=== PATIENT | male | born 1980 | race Caucasian/White ===

== ENCOUNTER 2022-02-18 11:26 | Emergency (ER) | payer OTHER, SELFPAY ==
[2022-02-18 11:32] VITALS: BP 144/97; PULSE 110; RESP 16; TEMP 36.6; O2SAT 100
[2022-02-18 11:45] VITALS: BP 144/97; PULSE 110; RESP 16; TEMP 36.6; O2SAT 100
--- NOTE | 2022-02-18 12:01 | ED.URI ---
HPI - URI/Sore Throat General Chief Complaint: Upper Respiratory Infection Stated Complaint: common cold Time Seen by Provider: 02/18/22 12:01 Source: patient and RN notes reviewed Mode of arrival: ambulatory Limitations: no limitations History of Present Illness HPI Narrative: 42-year-old male presents to the [facility] with complaints of sinus congestion, her runny nose, postnasal drip and sore throat. Symptoms x1 week. States that he has a skilled nursing sick. Has not slept a couple of days. Denies fevers, chest pain, abdominal pain. MD elicited complaint: cough, sore throat, rhinorrhea and nasal congestion Related Data Home Medications Medication Instructions Recorded Confirmed fluoxetine 20 mg tablet 20 mg PO DAILY 02/18/22 02/18/22 Allergies Allergy/AdvReac Type Severity Reaction Status Date / Time No Known Allergies Allergy Verified 02/18/22 11:45 Review of Systems Review of Systems: All systems reviewed & are unremarkable except as noted in HPI and below Constitutional: Constitutional: Reports no additional constitutional complaints, Denies chills and Denies fever(s) Eyes: Eyes: Reports no additional eye complaints ENT: Reports as per HPI and Reports nasal congestion Cardiovascular: Cardiovascular: Reports no additional cardiovascular complaints Respiratory: Respiratory: Reports no additional respiratory complaints Gastrointestinal: Gastrointestinal: Reports no additional gastrointestinal complaints Musculoskeletal: Musculoskeletal: Reports no additional musculoskeletal complaints Integumentary/Breasts: Skin/Breast: Reports system reviewed and no additional complaints, except as docu Neurologic: Reports system reviewed and no additional complaints, except as documented Psychiatric: Psychiatric: Reports no additional psychiatric complaints Allergic/Immunologic: Allergic/Immunologic: Reports no additional allergic/immunologic complaints PMFSH Family History Family History Mother Patient's mother is in good health Father Hypertension Social History Social History (Updated 02/18/22 @ 12:02 by Iris Lopes APRN) Smoking status: Current every day smoker Tobacco type: e-cigarettes/vaping Smoking end date: 04/17/11 Alcohol intake: current Gender identity (if verbalized by the patient): Male Comments At the time of my signature, I reviewed and agree with the nursing past medical, surgical, social, and family history. There is no relevant family history pertinent to the patient complaint. Exam Const: General: healthy appearing, no acute distress, alert and well nourished Nutritional Appearance: well nourished Orientation/consciousness: patient oriented x3 Limitations: no limitations HENMT: Head: normal to inspection Ears: external ears normal, TM's normal bilaterally and EAC's normal Face/Nose/Sinus: Normal external nose present and Normal nares present Face and sinus: normal facial exam Mouth: Yes Normal oral and palatal mucosa present, Yes lip normal and Yes moist mucous membranes Throat: posterior oropharynx normal, uvula midline and postnasal drainage Eyes: General: appearance normal, both eyes and all related structures Conjunctivae: conjunctivae normal Pupils: Equal, round and reactive pupils present Neck: Neck: normal visual inspection, no lymphadenopathy and no meningeal signs Chest: Chest palpation & inspection: normal inspection of the chest Resp: Effort & Inspection: normal respiratory effort and no use of accessory muscles Auscultation: clear to auscultation bilaterally, no crackles, no rales, no rhonchi and no wheezes Cardio: Rate: regular rate Rhythm: regular rhythm Skin: General skin exam: normal color Rashes: no rashes Wounds: no wounds Neuro: General: patient oriented x3, moves all extremities, no meningeal signs and no focal motor deficits Cranial nerves: Yes Equal, round and reactive pupils pr
== END 2022-02-18 12:11 | disposition home or self-care (01) ==
PROVIDERS: Emergency Provider Nurse Practitioner; PCP Internal Medicine
DX: J06.9 Acute upper respiratory infection, unspecified (principal); F17.290 Nicotine dependence, other tobacco product, uncomplicated
CPT/HCPCS: 99202; G0463

== ENCOUNTER 2023-11-16 15:25 | Emergency (ER) | payer OTHER, SELFPAY ==
[2023-11-16 15:36] VITALS: BP 168/137; PULSE 128; RESP 20; TEMP 36.5; O2SAT 100
--- NOTE | 2023-11-16 15:41 | ED.SKABFB ---
HPI - Skin/Abscess/Foreign Bdy General Chief complaint: Skin/Abscess/Foreign Body Stated complaint: poison césar Time Seen by Provider: 11/16/23 15:42 Source: patient Mode of arrival: ambulatory Limitations: no limitations History of Present Illness HPI narrative: 43 y/o male presents requesting a 'steroid shot,' with complaints of a poison césar rash x4 days after clearing brush. He has been using calamine lotion, hydrocortisone cream, and Benadryl as needed for the itching. He denies any fevers/chills, headache, body aches, or joint pain. Denies lip, tongue, or throat swelling, shortness of breath or wheezing. Denies changes to soap, detergent, lotion, or any other exposures. No one else in the house or any contacts with similar symptoms. BP elevated on arrival, he says PCP told him in September the bp was elevated but did not require medication, though he had previously been taking lisinopril.Denies chest pain, palpitations, Swelling, nausea, vomiting or dizziness. Related Data Home Medications Medication Instructions Recorded Confirmed bupropion HCl 150 mg 24 hr tablet, 150 mg PO DAILY 11/16/23 11/16/23 extended release hydroxyzine HCl 25 mg tablet 25 mg PO TID PRN Anxiety 11/16/23 11/16/23 Allergies Allergy/AdvReac Type Severity Reaction Status Date / Time No Known Allergies Allergy Verified 11/16/23 15:41 Review of Systems Review of Systems: CONSTITUTIONAL: Denies body aches, fever, chills, or sweats. EYES: Denies visual changes, redness, or discharge. ENT: Denies rhinorrhea, congestion CARDIOVASCULAR: Denies chest pain, palpitations, or edema. RESPIRATORY: Denies cough or dyspnea. GASTROINTESTINAL: Denies abdominal pain, nausea, vomiting, or diarrhea. SKIN: Reports pruritic rash to eyebrows, bilateral arms, and left lower abdomen MUSCULOSKELETAL: Denies back pain, joint pain, or myalgia. NEUROLOGIC: Denies headache, numbness, tingling, or weakness. [facility] Past Medical History Medical History (Updated 11/16/23 @ 16:20 by Ella Aguilar APRN) Essential hypertension Family History Family History Mother Patient's mother is in good health Father Hypertension Social History Social History Smoking status: Current every day smoker Tobacco type: e-cigarettes/vaping Smoking end date: 04/17/11 Alcohol intake: current Gender identity (if verbalized by the patient): Male Comments At time of signature, I have reviewed and agree with nursing past medical, surgical, social and family history unless otherwise noted. Please see nursing chart for further information. There is no relevant family history pertinent to the presenting complaint Exam Narrative: GENERAL: Well-appearing. Anxious. HEAD: Normocephalic, atraumatic. EYES: conjunctivae clear and EOMI. NECK: Supple. CHEST: Clear to auscultation. HEART: Tachycardic. Regular rate and rhythm. SKIN: Warm and dry. mild scattered Erythematous vesicular rash to bilateral eyebrows, upper extremities, and lower abdomen/pelvis c/w contact dermatitis NEURO: Alert and oriented x3. Course Course Emergency Course: Patient is aware of diagnosis, understands and agrees to treatment plan. Anticipatory guidance given. Patient agrees to follow-up as directed and is aware of reasons to seek care at the emergency department. Portions of this record may have been created with voice recognition software Level of Care: Express Care Visit Vital Signs Vital signs: Vital Signs Temperature 97.7 F 11/16/23 15:36 Pulse Rate 128 H 11/16/23 15:36 Respiratory Rate 11/16/23 15:36 Blood Pressure 168/137 H 11/16/23 15:36 Pulse Oximetry 100 11/16/23 15:36 Oxygen Delivery Room Air 11/16/23 15:36 Temperature 97.7 F 11/16/23 15:36 Pulse Rate 128 H 11/16/23 15:36 Respiratory Rate 11/16/23 15:36 Blood Pressure 189/136
[2023-11-16 15:57] VITALS: BP 189/136
== END 2023-11-16 16:00 | disposition left against medical advice (07) ==
PROVIDERS: Emergency Provider Nurse Practitioner Family; PCP Family Medicine
DX: L25.9 Unspecified contact dermatitis, unspecified cause (principal); I10 Essential (primary) hypertension; F17.290 Nicotine dependence, other tobacco product, uncomplicated
CPT/HCPCS: 99211; G0463

== ENCOUNTER 2024-07-14 18:47 | Emergency (ER) | payer SELFPAY ==
--- OUTSIDE RECORDS SUMMARY | 2024-07-14 18:50 | XMS_ITS | Patient Health Record ---
Author Organization [facility] Address [address] [place] [address] Care Team Providers Care Paralegal Internship Name Role Phone Paula López Primary Care Provider [phone] Allergies No Known Allergies Results Component Value Reference Range Notes QuantiFERON-TB Gold Plus (15 [id number]) Reviewed date:01/01/2024 12:19:55 PM Interpretation:Negative Performing Lab[facility], [address], Phone - [phone], Director - Kain Notes/Report: QuantiFERON Incubation Incubation performed. QuantiFERON-TB Gold Plus Negative Negative No response to M tuberculosis antigens detected. Infection with M tuberculosis is unlikely, but high risk individuals should be considered for additional testing (ATS/IDSA/CDC Clinical Practice Guidelines, 2017). The reference range is an Antigen minus Nil result of <0.35 IU/mL. Chemiluminescence immunoassay methodology QuantiFERON Criteria QuantiFERON-TB Gold Plus is a qualitative indirect test for M tuberculosis infection (including disease) and is intended for use in conjunction with risk assessment, radiography, and other medical and diagnostic evaluations. The QuantiFERON-TB Gold Plus result is determined by subtracting the Nil value from either TB antigen (Ag) value. The Mitogen tube serves as a control for the test. QuantiFERON TB1 Ag Value 0.01 QuantiFERON TB2 Ag Value 0.01 QuantiFERON Nil Value 0.00 QuantiFERON Mitogen Value >10.00 Reason For Referral No Information Medications Medication SIG (Take, Route, Frequency, Duration) Notes Start Date End Date Status Melatonin 5 MG 1 tablet in the even ing Orally Once a day Active hydrOXYzine HCl 25 MG/ML as directed Intramuscular Active Multivitamin - 1 tablet Orally Once a day Active Nicorette 2 MG 1 piece chew for 30 minutes as needed Mouth/Throat every 8 hrs Active Nicotine 21 MG/24HR 1 patch to skin Thompson sdermal Once a day Active Social History Sex Assigned At : Social History Observation Description Sex Assigned At Male Vital Signs Heart Rate 101 /min 12/26/2023 Respiratory Rate 16 /min 12/26/2023 Blood pressure diastolic 102 mm Hg 12/26/2023 Oximetry 97 % 12/26/2023 Height 69.00 in 12/26/2023 Blood pressure systolic 142 mm Hg 12/26/2023 Weight 161.00 lbs 12/26/2023 BMI 23.77 kg/m2 12/26/2023 Encounters Encounter Location Date Provider Diagnosis [facility] [place] [address] [place] [address] 12/26/2023 Paula López Adult general medical examination Z00.00 Assessments Encounter Date Diagnosis (ICD Code) Assessment Notes Treatment Notes Treatment Clinical Notes Section Notes 12/26/2023 Adult general medical examination (ICD-10 - Z00.00) 12/26/2023 Other Continue treatment as recommended by [facility] staff. Encouraged patient to obtain routine medical care with patient's own primary care provider or establish as a patient at [facility] if no current primary care provider. Plan Of Treatment No Information Medical (General) History Medical History History ICD Code hypertension Surgical History Surgery Date(Month/Year) vasectomy 2018
--- OUTSIDE RECORDS SUMMARY | 2024-07-14 18:50 | XMS_ITS | Encounter Summary ---
Author Organization [facility] Address [address] [place] [address] Phone Care Team Providers Care Support Specialist Name Role Phone Koffi Pineda MD Primary Care Provider [phone] Encounter Details Date Type Department Care Team (Late st Contact Info) Description 07/13/2023 Telephone [facility] [address] [place] [address] Koffi Pineda MD [address] [address] Social History Tobacco Use Types Packs/Day Years Used Date Smoking Tobacco: Former Smokeless Tobacco: Never Alcohol Use Standard Drinks/Week Comments No 0 (1 standard drink = 0.6 oz pur e alcohol) Stopped drinking 2017 PHQ-2 Answer Date Recorded Total Score - Questions 1-9 15 10/16 Sexually Active Control Partners Comments Yes Female Sex and Gender Information Value Date Recorded Sex Assigned at Not on file Legal Sex Male 3:09 PM CDT Gender Identity Not on file Sexual Orientation Not on file documented as of this encounter Plan of Treatment Not on file documented as of this encounter Visit Diagnoses Not on filedocumented in this encounter Additional Health Concerns Assessment Noted Time PHQ-9 Depression Total Score: 15 022 1:00 PM CDT documented as of this encounter Care Teams Support Specialist Relationship Specialty Start Date End Date Koffi Pineda MD [address] [address] PCP - General Family Medicine 01/18/16 documented as of this encounter
--- OUTSIDE RECORDS SUMMARY | 2024-07-14 18:50 | XMS_ITS | Encounter Summary ---
Author Organization [facility] Address [address] [place] [address] Phone Care Team Providers Care Tax Appraiser Name Role Phone Koffi Pineda MD Primary Care Provider Reason for Visit * Reason Comments Medication Refill Encounter Details Date Type Department Care Team (Late st Contact Info) Description 10/13/2020 Refill [facility] - Family Medicine [facility] [address] [place] [address] Koffi Pineda MD [address] [address] Medication Refill Social History Tobacco Use Types Packs/Day Years Used Date Smoking Tobacco: Former Smokeless Tobacco: Never Alcohol Use Standard Drinks/Week Comments No 0 (1 standard drink = 0.6 oz pur e alcohol) Stopped drinking 2017 PHQ-2 Answer Date Recorded Total Score - Questions 1-9 0 05/18 Sexually Active Control Partners Comments Yes Female Sex and Gender Information Value Date Recorded Sex Assigned at Not on file Legal Sex Male 3:09 PM CDT Gender Identity Not on file Sexual Orientation Not on file documented as of this encounter Miscellaneous Notes * Telephone Encounter - Koffi Pineda MD - 10/14/2020 1:49 PM CDT Prescription approved. Please call in * Telephone Encounter - Barb Mason RN - 10/14/2020 1:08 PM CDT Medication failed the protocol, provider to review and approve the medication order if appropriate. Requested Prescriptions Pending Prescriptions Disp Refills valACYclovir (VALTREX) 1 GM Tablet [Pharmacy Med Name: VALACYCLOVIR HCL 1 GRAM TABLET] 20 Tablet 0 Sig: TAKE 1 TABLET BY MOUTH TWICE A DAY [facility] Not Delegated - Antimicrobials: Antiviral Agents - Anti-Herpetic Failed - 10/14/2020 10:59 AM Failed - This refill cannot be delegated Passed - Valid encounter within last 12 months Past Office Visits Recent Outpatient Visits 3 months ago Anxiety [facility] - Koffi Adams MD 4 months ago Physical exam, annual (Adult) [facility] - Koffi Adams MD 1 year ago Physical exam, annual (Adult) [facility] Koffi Adams MD 1 year ago Toe infection [facility] Rosa Alberto APN, CNP 1 year ago Intractable migraine without aura and without status migrainosus [facility] Rosa Alberto APN, CNP Upcoming Appointments Future Appointments In 7 months Koffi Pineda MD [facility] Recent and Past Visits Recent Visits Date Type Provider Dept 07/07/20 Telemedicine Koffi Pineda MD [facility] 06/04/20 Office [facility] Showing recent visits within past 460 days with a meds authorizing provider and meeting all other requirements Future Appointments No visits were found meeting these conditions. Showing future appointments within next 90 days with a meds authorizing provider and meeting all other requirements documented in this encounter Plan of Treatment Not on file documented as of this encounter Visit Diagnoses Not on filedocumented in this encounter Additional Health Concerns Infection Onset Date Last Indicated Resolved Time COVID - 19 01/03/2021 01/03/2021 01/23/2021 12:1 6 AM CDT COVID - 19 05/03/2021 05/03/2021 05/23/2021 12:1 6 AM MANAGER PRIMARY CARE Assessment Noted Time PHQ-9 Depression Total Score: 0 06/04/19 21 8:06 AM MANAGER PRIMARY CARE documented as of this encounter Care Teams Tax Appraiser Relationship Specialty Start Date End Date Koffi Pineda MD [address] [address] PCP - General Family Medicine 01/18/16 documented as of this encounter
--- OUTSIDE RECORDS SUMMARY | 2024-07-14 18:50 | XMS_ITS | Encounter Summary ---
Author Organization [facility] Address [address] [place] [address] Phone Care Team Providers Care Principal Software Engineer Name Role Phone Koffi Pineda MD Primary Care Provider [phone] Reason for Visit * Reason Comments Medication Refill Encounter Details Date Type Department Care Team (Late st Contact Info) Description 10/24/2020 Refill [facility] - Family Medicine [facility] [address] [place] [address] Koffi Pineda MD [address] [address] Medication Refill Social History Tobacco Use Types [...] Telephone Encounter - Koffi Pineda MD - 10/26/2020 10:48 AM CDT Prescription approved. Please call in * Telephone Encounter - Christine Campos RN - 10/26/2020 10:47 AM CDT Medication failed the protocol, provider to review and approve the medication order if appropriate. Requested Prescriptions Pending Prescriptions Disp Refills venlafaxine (EFFEXOR-XR) 150 MG CAPSULE SR 24 HR [Pharmacy Med Name: VENLAFAXINE HCL ER 150 MG CAP]90 Capsule 1 Sig: TAKE 1 CAPSULE BY MOUTH EVERY DAY SNRI (6 Month Refill Only) Protocol Failed - 10/24/2020 2:23 PM Failed - Patient has established therapy with Serotonin-Norepinephrine Reuptake Inhibitors for at least 6 months Passed - Visit with relevant provider in past 6 months or upcoming 90 days Recent Visits Date Type Provider Dept 07/07/20 Telemedicine Koffi Pineda MD [facility] 06/04/20 Office Visit Koffi Pineda MD [facility] Showing recent visits within past 182 days and meeting all other requirements Future Appointments No visits were found meeting these conditions. Showing future appointments within next 90 days and meeting all other requirements Passed - Has an encounter in the past 6 months with a depression or anxiety visit diagnosis documented in this encounter Plan of Treatment Not on file documented as of this encounter Visit Diagnoses Diagnosis Anxiety Anxiety state, unspecified documented in this encounter Additional Health Concerns Infection Onset Date Last Indicated Resolved Time COVID - 19 01/03/2021 01/03/2021 01/23/2021 12:1 6 AM CDT COVID - 19 05/03/2021 05/03/2021 05/23/2021 12:1 6 AM DISTRICT MEDICAL EXAMINER Assessment Noted Time PHQ-9 Depression Total Score: 0 06/04/19 8:06 AM DISTRICT MEDICAL EXAMINER documented as of this encounter Care Teams Principal Software Engineer Relationship Specialty Start Date End Date Koffi Pineda MD [address] [address] PCP - General Family Medicine 01/18/16 documented as of this encounter
--- OUTSIDE RECORDS SUMMARY | 2024-07-14 18:50 | XMS_ITS | Clinical Summary ---
Author Organization [facility] Address [address] [address] Phone Care Team Providers Care Gis Application Developer Name Role Phone Koffi Pineda MD Primary Care Provider [phone] Allergies No known active allergies Medications SUMAtriptan (IMITREX) 25 MG TabletIndication s:Intractable migraine without aura and without status migrainosus TAKE 1 TAB BY MOUTH ONCE NEEDED FOR MIGRAINE. MAY REPEAT DOSE IN 2 HOURS IF HEADACHE RECURS. 9 Tab 3 1 Active venlafaxine (EFFEXOR-XR) 75 MG CAPSULE SR 24 HR Take 1 Capsule by mouth daily. 90 Capsule 3 Active lisinopril (PRINIVIL, ZESTRIL) 20 MG Tablet Take 1 Tablet by mouth daily. 90 Tablet 3 3 Active Active Problems Problem Noted Date Diagnosed Date Anxiety 05/09/2018 Unwanted fertility 05/09/2018 Major depressive disorder, r ecurrent episode, moderate with anxious distress 03/16/2018 Alcohol dependence, in remission 03/16/2018 HTN (hypertension) 02/25/2016 Physical exam, annual (Adult) 02/25/2016 Immunizations Immunization Administration Dates Next Due DTAP VACCINE 01/24/2015 Hepatitis A And Hepatitis B Vaccine 06/23/2014 TDAP Vaccine 06/23/2014 Family History Medical History Relation Name Comments No Known Problems Mother Relation Name Status Comments Brother Alive Father Mother Alive Social History Tobacco Use Types Packs/Day Years Used Date Smoking Tobacco: Former Smokeless Tobacco: Never Tobacco Cessation:Counseling Given: Not Answered Alcohol Use Standard Drinks/Week Comments No 0 [...] on file Sexual Orientation Not on file Last Filed Vital Signs Vital Sign Reading Time Taken Comments Blood Pressure 157/140 07/11/2023 10:15 AM CDT Pulse 97 07/11/2023 10:15 AM CDT Temperature 36.5 C (97.7 F) 07/11/2023 6:18 AM CDT Respiratory Rate 30 07/11/2023 8:00 AM CDT Oxygen Saturation 97% 07/11/2023 10:15 AM CDT Inhaled Oxygen Concentration - - Weight 72.6 kg (160 lb) 07/11/2023 6:18 AM CDT Height 175.3 cm (5' 9 ) 07/11/2023 6:18 AM CDT Body Mass Index 23.63 07/11/2023 6:18 AM CDT Plan of Treatment Health Maintenance Due Date Last Done Comments Hepatitis C Virus (HCV) Screening 1980 Hepatitis B Immunization (2 of 3 - Hep B Twinrix 3-dose series) 07/21/2014 06/23/2014 Influenza Immunization (#1) 2023 SARS-COV-2 Immunization ( - season) 2023 Td Immunization Every 10 Yea rs (Adults With 1 Tdap) 06/23/2024 06/23/2014 Respiratory Syncytial Virus (RSV) Immunization (Adult) (1 - 1-dose 75+ series) 01/16/2056 Meningococcal Immunization (ACWY) Aged Out No longer eligible based on patient's age to complete this topic Pneumococcal Immunization Combined Aged Out No longer eligible based on patient's age to complete this topic Rotavirus Immunization Aged Out No lo nger eligible based on patient's age to complete this topic Care Teams Gis Application Developer Relationship Specialty Start Date End Date Koffi Pineda MD [address] [place] [address] PCP - General Family Medicine 01/18/16
--- OUTSIDE RECORDS SUMMARY | 2024-07-14 18:50 | XMS_ITS | Encounter Summary ---
Author Organization [facility] Address [address] [place] [address] Phone Care Team Providers Care Railroad Baggage Porter Name Role Phone Koffi Pineda MD Primary Care Provider Reason for Visit * Reason Comments Medication Refill Encounter Details Date Type Department Care Team (Late st Contact Info) Description 04/24/2020 Refill [facility] - Family Medicine [facility] [address] [place] [id number] Rosa Anderson APRN, INDUSTRIAL AUTOMATION ENGINEER [address] [address] Medication Refill Social History Tobacco Use Types [...] Telephone Encounter - Koffi Pineda MD - 04/24/2020 11:44 AM CST Prescription approved. Please call in AL NUTRITIONIST * Telephone Encounter - Christine Campos RN - 04/24/2020 11:39 AM CST PRN medication requires review from provider Per nursing clinical judgement, provider to review and approve the medication(s) order(s) if appropriate. Requested Prescriptions Pending Prescriptions Disp Refills SUMAtriptan (IMITREX) 25 MG Tablet [Pharmacy Med Name: SUMATRIPTAN SUCC 25 MG TABLET] 9 Tab 3 Sig: TAKE 1 TAB BY MOUTH ONCE NEEDED FOR MIGRAINE. MAY REPEAT DOSE IN 2 HOURS IF HEADACHE RECURS. Neurology: Migraine Therapy Passed - 04/24/2020 10:39 AM Passed - Valid encounter within last 12 months Past Office Visits Recent Outpatient Visits 10 months ago Physical exam, annual (Adult) [facility] - Koffi Adams MD 1 year ago Toe infection [facility] Rosa Alberto APN, CNP 1 year ago Intractable migraine without aura and without status migrainosus [facility] Rosa Alberto APN, CNP 1 year ago Anxiety [facility] Koffi Adams MD 1 year ago Physical exam, annual (Adult) [facility] Koffi Adams MD Upcoming Appointments Future Appointments In 1 month Koffi Pineda MD [facility] - Recent and Past Visits Recent Visits Date Type Provider Dept 06/04/19 Office Visit Koffi Pineda MD [facility] 03/04/19 Office Visit Rosa Anderson APN, CNP [facility] 01/30/19 Office Visit Rosa Anderson APN, CNP [facility] Showing recent visits within past 460 days with a meds authorizing provider and meeting all other requirements Future Appointments Date Type Provider Dept 06/04/20 Appointment Koffi Pineda MD [facility] Showing future appointments within next 90 days with a meds authorizing provider and meeting all other requirements AL NUTRITIONIST documented in this encounter Plan of Treatment Not on file documented as of this encounter Visit Diagnoses Diagnosis Intractable migraine without aura and without status migrainosus Migraine without aura, with intractable migraine, so stated, without mention of status migrainosus documented in this encounter Additional Health Concerns Infection Onset Date Last Indicated Resolved Time COVID - 19 01/03/2021 01/03/2021 01/23/2021 12:1 6 AM CDT COVID - 05/03/2021 05/03/2021 05/23/2021 12:1 6 AM ANIMAL NUTRITIONIST Assessment Noted Time PHQ-9 Depression Total Score: 0 06/04/19 20 8:19 AM ANIMAL NUTRITIONIST documented as of this encounter Care Teams Railroad Baggage Porter Relationship Specialty Start Date End Date Koffi Pineda MD [address] [place] [id number] PCP - General Family Medicine 01/18/16 documented as of this encounter
--- OUTSIDE RECORDS SUMMARY | 2024-07-14 18:50 | XMS_ITS ---
Author Organization [facility] Address [address] [place] [address] Care Team Providers Care Rotary Furnace Operator Name Role Phone Paula López Primary Care Provider Allergies No Known Allergies REASON FOR VISIT MRU Medications Medication SIG (Take, Route, Frequency, Duration) [...] Description Sex Assigned At Male Vital Signs Weight 161.00 lbs 12/26/2023 Height 69.00 in 12/26/2023 BMI 23.77 kg/m2 12/26/2023 Blood pressure systolic 142 mm Hg 12/26/19 24 Blood pressure diastolic 102 mm Hg 024 Heart Rate 101 /min 12/26/2023 Oximetry 97 % 12/26/2023 Respiratory Rate 16 /min 12/26/2023 Encounters Encounter Location Date Provider Diagnosis [place] [address] [address] 12/26/2023 Paula López Adult general medical examination Z00.00 Assessments Encounter Date Diagnosis (ICD Code) Assessment Notes Treatment Notes Treatment Clinical Notes Section Notes 12/26/2023 Adult general medical examination (ICD-10 - Z00.00) 12/26/2023 Other Continue treatment as recommended by [facility] staff. Encouraged patient to obtain routine medical care with patient's own primary care provider or establish as a patient at [facility] if no current primary care provider. Plan Of Treatment Treatment Notes Assessment Notes Other Continue treatment as recommended by [facility] staff. Encouraged patient to obtain routine medical care with patient's own primary care provider or establish as a patient at [facility] if no current primary care provider. 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 W as hospitalized N o.? D epression Screening: PHQ-9 L ittle interest or pleasure in doing things N early every day, F eeling down, depressed, or hopeless S everal days, T rouble falling or staying asleep, or sleeping too much S ever, F eeling tired or having little energy Not at all, P oor appetite or overeating N ot at all, F eeling bad about yourself or that you are a failure, or have let yourself or your family down S everal , T rouble concentrating on things, such as reading the newspaper or watching television S ever, M oving or speaking so slowly that other people could have noticed; or the opposite, being so fidgety or restless that you have been moving around a lot more than usual N ot at all, T houghts that you would be better off or of hurting yourself in some way N ot at all, T otal Score 7 , I nterpretation M ild Depression. I ntervention D epression Screening Findings N egative. S creening: Lassen Suicide Severity Rating Scale (LF) D o you want to initiate with S creener form, 1 . Wish to be : Have you wished you were or wished you could go to sleep and not wake up? N o, 2 . Suicidal Thoughts: Have you actually had any thoughts of killing yourself? N o, 6 . Suicide Behaviour: Have you ever done anything,started to do anything, or prepared to end your life? N o, I nterpretation: L ow Risk. P reventative Health and Wellness follow-up: Action Plans for Clinical Quality Measures: H IV Screening:?Discussed need for HIV screening. Patient declined.. .. C SSRS Interpretation and Follow Up Plan: CSSRS Interpretation and Follow Up PlanCSSRS Interpretation and Follow Up Plan. S zach: Presents for physical as patient is admitted to Residential Unit at [facility]. Arrived on:12/25/23 Use of: Meth Last use: 13 days prior to admittance Via: smoke, snort Previous treatment: outpt. 2023 [facility] Withdrawals symptoms:Denies Medical History: HTN PCP: Dr. Dowell located in [facility] Provider: Denies Current medical concerns: Elevated BP today, reprots he has a Hx of HTN, but has not been in medication as it was controlled for many years. Will continue to monitor while on unit. Pt. reports before coming to clinic, he was in group where his anxiety was high, and he feels it may be r/t to that. Denies SI/HI. * ROS: P sych ROS: Constitutional D enies. E yes D enies. E ars/Nose/Mouth/Throat D enies. R espiratory D enies. C ardiovascular D enies. G I?Denies. G U D enies. M usculoskeletal D enies. N eurological D enies. Integumentary D enies. H ematological/Lymphatic D enies. B asic ROS: Denies S eizures. D enies S uicidal Thoughts. ? * Medical History: * Surgical History: v asectomy 2019 * Hospitalization/Major Diagno stic Procedure: N o Hospitalization History. * Family History: F ather: . M other: . 1 brother(s) - healthy. 1 son(s) , 1 daughter(s) - healthy. . mom and dad both from hep c. * Social History: P rimary Social History: L iving Arrangement L iving Arrangement: D ependent Living, L iving with: O ther: lives with friend, I s this a supportive environment? Y es. A lcohol Use A lcohol Use Frequency: M onthly or less. 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 M iscellaneous: M ethod of learning P referred method of learning: D iscussion. * Medications: T akingNicotine 21 MG/24HR Patch 24 Hour 1 patch to skin Transdermal Once a day Nicorette 2 MG Gum 1 piece chew for 30 minutes as needed Mouth/Throat every 8 hrs Melatonin 5 MG Tablet 1 tablet in the evening Orally Once a day hydrOXYzine HCl 25 MG/ML Solution as directed Intramuscular Multivitamin - Tablet 1 tablet Orally Once a day Medication List reviewed and reconciled with the patientTaking Nicotine 21 MG/24HR Patch 24 Hour 1 patch to skin Transdermal Once a day Taking Nicorette 2 MG Gum 1 piece chew for 30 minutes as needed Mouth/Throat every 8 hrs Taking Melatonin 5 MG Tablet 1 tablet in the evening Orally Once a day Taking hydrOXYzine HCl 25 MG/ML Solution as directed Intramuscular Taking Multivitamin - Tablet 1 tablet Orally Once a day Medication List reviewed and reconciled with the patient * Allergies: N .K.D.A.no[Allergies Verified] Objective: * Vitals: I nitials: hp, Wt:161.00, Ht:69.00, BMI:23.77, BP:142/102, HR:101, Oxygen sat %:97, RR:16, Pain scale:2. * Examination: A ctivity Permissions and Medication Self Administration: Activity Level & Medication Self-Administration Permissions?Activity Level Permitted: T he patient/client may fully take part in physical fitness programming including aerobic, muscular strength, and flexibility training without restriction.Medication Self-Administration Permissions: M edications may be self-administered by the patient/client under the supervision of approved staff or administered by nursing staff.. . G eneral Examination: GENERAL APPEARANCE: a lert, in no acute distress. HEAD: n ormocephalic, atraumatic. EYES: B OTH EYES, sclera anicteric, pupils equal, round, reactive to light and accommodation , extraocular movement intact (EOMI). EARS B OTH EARS, normal. NOSE: n lisa patent. ORAL CAVITY: m ucosa moist, edentulous. THROAT: p harynx normal. NECK/THYROID: n magi supple , no thyromegaly. SKIN: w arm and dry, no rashes, no suspicious lesions. HEART: r egular rate and rhythm, S1, S2 normal, no S3, S4, no murmurs, rubs, gallops. LUNGS: r espirations regular and easy, clear to auscultation bilaterally, no wheezes, rales, rhonchi, clear anteriorly and posteriorly, good air movement. ABDOMEN: b owel sounds present, soft, nontender, nondistended, no masses palpable, no organomegaly . EXTREMITIES: n o edema. PERIPHERAL PULSES: 2 + throughout. NEUROLOGIC: n onfocal, gait normal. PSYCH: a ppropriate affect. Assessment: * Assessment: 1. A dult general medical examination - Z00.00 (Primary) Plan: * Treatment: 2. O thers Notes:Continue treatment as recommended by [facility] staff.Encouraged patient to obtain routine medical care with patient's own primary care provider or establish as a patient at [facility] if no current primary care provider. * Recommended Wellness and Pre vention Guidelines: * S tatus A lert L ast Done N ext Due A ction Taken N ONCOMPLIANT A lcohol use screening - 0 12/26/2023 - N ONCOMPLIANT A llergy List Verification - 0 12/26/2023 - N ONCOMPLIANT B mili Mass Index - 0 12/26/2023 - N ONCOMPLIANT C holesterol screen (genl pop) - 0 12/26/2023 - N ONCOMPLIANT D epression screening - 0 12/26/2023 - N ONCOMPLIANT H IV screening - 0 12/26/2023 - N ONCOMPLIANT S moking status - 0 12/26/2023 - * Procedure Codes: 3 008F BODY MASS INDEX [id number] MEDICAL NUTRITION, INDIV, [id number] BEHAV CHNG SMOKING 3-10 MIN * Preventive Medicine: Counseling: C are goal follow-up plan: B AK management provided Y Kenny raya Normal BMI Follow-up L ifestyle education regarding diet. S MOKING: P atient counselled on the dangers of tobacco use and urged to quit. . . * Follow Up: p rn * * Sign off status: Completed true * Provider: William López, MANNIE Date: 0 12/26/2023 Generated for Hermiloi leia/Shyla/Mónicaransmmadeleine on: 0 07/14/2024 06:50 PM CDT History and Physical Notes * HPI (History of Present Illness) Category Sub-Category Detail Notes Category Not es Interim History Was hospitalized No Emergency room visit No Depression Screening PHQ-9 Little inte rest or pleasure in doing things: Nearly every day Feeling down, depressed, or hopeless: Se veral days Trouble falling or staying asleep, or sl eeping too much: Several days Feeling tired or having little energy: N ot at all Poor appetite or overeating: Not at all Feeling bad about yourself o r that you are a failure, or have let yourself or your family down: Several days Trouble concentrating on thi ngs, such as reading the newspaper or watching television: Several days Moving or speaking so slowly that other people could have noticed; or the opposite, being so fidgety or restless that you have been moving around a lot more than usual: Not at all Thoughts that you would be b rashel off or of hurting yourself in some way: Not at all Total Score: 7 Interpretation: Mild Depression Intervention Depression Screening Findings: N egative Summary Presents for physical as patient is admitted to Residential Unit at [facility]. Arrived on:12/25/23 Use of: Meth Last use: 13 days prior to admittance Via: smoke, snort Previous treatment: outpt. 2023 [facility] Withdrawals symptoms:Denies Medical History: HTN PCP: Dr. Dowell located in [facility] Provider: Denies Current medical concerns: Elevated BP today, reprots he has a Hx of HTN, but has not been in medication as it was controlled for many years. Will continue to monitor while on unit. Pt. reports before coming to clinic, he was in group where his anxiety was high, and he feels it may be r/t to that. Denies SI/HI. Screening Lassen Suicide Severity Rating Scale (LF) Do you want to initiate with: Screener form 1. Wish to be : Have you wished you were or wished you could go to sleep and not wake up?: No 2. Suicidal Thoughts: Have you actually had any thoughts of killing yourself?: No 6. Suicide Behavior Question: Have you ever done anything,started to do anything, or prepared to end your life?: No Interpretation:: Low Risk Preventative Health and Wellness follow-up Action Plans for Clinical Quality Measures: HIV Screening:: Discussed need for HIV screening. Patient declined. . . Examination Category Sub-Category Detail Notes Category Not es General Examination GENERAL APPEARANCE: alert, in no a cute distress HEAD: normocephalic, atrau matic EYES: BOTH EYES, sclera an icteric, pupils equal, round, reactive to light and accommodation , extraocular movement intact (EOMI) EARS BOTH EARS, normal NOSE: nares patent THROAT: pharynx normal NECK/THYROID: neck supple , no thy romegaly HEART: regular rate and rhy thm, S1, S2 normal, no S3, S4, no murmurs, rubs, gallops LUNGS: respirations regular and easy, clear to auscultation bilaterally, no wheezes, rales, rhonchi, clear anteriorly and posteriorly, good air movement ABDOMEN: bowel sounds present , soft, nontender, nondistended, no masses palpable, no organomegaly NEUROLOGIC: nonfocal, gait cecile l SKIN: warm and dry, no glo hes, no suspicious lesions EXTREMITIES: no edema PERIPHERAL PULSES: 2+ throughout PSYCH: appropriate affect ORAL CAVITY: mucosa moist, edentu lous Activity Permissions and Medication Self Administration Activity Level & Medication Self-Administration Permissions Activity Level Permitted:: The patient/client may fully take part in physical fitness programming including aerobic, muscular strength, and flexibility training without restriction. . Medication Self-Administrati on Permissions:: Medications may be self- administered by the patient/client under the supervision of approved staff or administered by nursing staff.
--- OUTSIDE RECORDS SUMMARY | 2024-07-14 18:50 | XMS_ITS | CONTINUITY OF CARE DOCUMENT ---
Author Name antonio alvarez Address Unknown Organization [facility] Address [address] [place] [address] Phone [phone] Care Team Providers Care Developer Relations Manager Name Role Phone Ryan HUERTA, Hari Unavailable [phone] SUNNY HUERTA, AMANDA Roque Unavailable [phone] INSURANCE PROVIDERS Payer name Policy type / Coverage type [place] red alliance party ID [id number] PAY [id number]
[2024-07-14 18:54] VITALS: BP 149/98; PULSE 77; RESP 16; TEMP 36.8; O2SAT 97
--- OUTSIDE RECORDS SUMMARY | 2024-07-14 18:54 | XMS_ITS | Referral Summary ---
Author Organization [facility] Address [address] [place] [address] Care Team Providers Care Security Flex Utility Officer Name Role Phone Koffi Pineda MD Primary Care Provider [phone] Allergies No known active allergies Medications No known medications Social History Tobacco Use Types Packs/Day Years Used Date Smoking Tobacco: Never Assessed Personal Safety Answer Date Recorded Have you ever been in or are you currently in a harmful physical or emotional relationship or is someone making you feel afraid or unsafe? Denies 12/13/2023 Sex and Gender Information Value Date Recorded Sex Assigned at Not on file Legal Sex Male 10:53 AM CDT Gender Identity Not on file Sexual Orientation Not on file Last Filed Vital Signs Vital Sign Reading Time Taken Comments Blood Pressure 131/83 12/13/2023 3:45 PM CDT Pulse 101 12/13/2023 4:30 PM CDT Temperature 36.4 C (97.6 F) 12/13/2023 10:25 AM CDT Respiratory Rate 15 12/13/2023 4:30 PM CDT Oxygen Saturation 100% 12/13/2023 4:30 PM CDT Inhaled Oxygen Concentration - - Weight 74.8 kg (165 lb) 12/13/2023 10:25 AM CDT Height 175.3 cm (5' 9 ) 12/13/2023 10:25 AM CDT Body Mass Index 24.37 12/13/2023 10:25 AM CDT Plan of Treatment Not on file Care Teams Security Flex Utility Officer Relationship Specialty Start Date End Date Koffi Pineda MD [facility] [id number] PCP - General Family Medicine 08/03/23
--- OUTSIDE RECORDS SUMMARY | 2024-07-14 18:54 | XMS_ITS | Clinical Summary ---
Author Organization [facility] Address [address] [place] [address] Care Team Providers Care Senior Sales Consultant Name Role Phone Koffi Pineda MD Primary Care Provider [phone] Allergies No known active allergies Medications No [...] on file Sexual Orientation Not on file Obstetrics History Last Filed Vital Signs Vital Sign Reading [...] 12/13/2023 10:25 AM CDT Plan of Treatment Health Maintenance Due Date Last Done Comments Depression Screening 1981 Hepatitis C Screening 1981 Varicella Vaccines (1 of 2 - 13+ 2-dose series) 1994 Regular Well Visit/Exam 18-64 1999 Pneumococcal vaccine <65 (1 of 2 - PCV) 01/16/2000 Influenza Vaccine (#1) 2023 DTaP/Tdap/Td Vaccine (3 - Td or Tdap) 01/24/2025 01/24/2015, 06/23/2014 Hepatitis B Screening Completed 06/23/2014 HPV Vaccines Aged Out No longer eligi ble based on patient's age to complete this topic Care Teams Senior Sales Consultant Relationship Specialty Start Date End Date Koffi Pineda MD [address] [address] PCP - General Family Medicine 08/03/23
--- OUTSIDE RECORDS SUMMARY | 2024-07-14 18:54 | XMS_ITS | CONTINUITY OF CARE DOCUMENT ---
Author Name antonio alvarez Address Unknown Organization [facility] Address [address] [place] [address] Phone [phone] Care Team Providers Care Lightning Protection Installer Name Role Phone Ryan HUERTA, Hari Unavailable [phone] SUNNY HUERTA, AMANDA Roque Unavailable [phone] INSURANCE PROVIDERS Payer name Policy type / Coverage type [place] red green party ID [id number] PAY [id number]
--- NOTE | 2024-07-14 18:59 | ED_ITS ---
HPI - Wound/Laceration General Chief Complaint: Wound/Laceration Stated Complaint: Skin Sore Time Seen by Provider: 07/14/24 18:59 Source: patient Mode of arrival: ambulatory Limitations: no limitations History of Present Illness HPI narrative: 44 yo M presents with red bump to L cheek. Concerned for ingrown hair. No drainage. All systems reviewed and negative except as noted above. Related Data Allergies Allergy/AdvReac Type Severity Reaction Status Date / Time No Known Allergies Allergy Verified 07/14/24 19:03 Review of Systems Review of Systems: CONSTITUTIONAL: Denies fever, chills, or sweats. EYES: Denies visual changes, redness, or discharge. ENT: Denies rhinorrhea, congestion, sore throat, or otalgia. CARDIOVASCULAR: Denies chest pain, palpitations, or edema. RESPIRATORY: Denies cough or dyspnea. GASTROINTESTINAL: Denies abdominal pain, nausea, vomiting, or diarrhea. GENITOURINARY: Denies dysuria or hematuria. SKIN: Denies rash or itching. Reports redness and swelling to left jaw. MUSCULOSKELETAL: Denies back pain, joint pain, or myalgia. NEUROLOGIC: Denies headache, numbness, or weakness. PSYCHIATRIC: Denies anxiety or depression. All other systems reviewed are negative, except as documented in HPI. [facility] Past Medical History Medical History (Updated 07/14/24 @ 19:16 by Radha Colon NP) Essential hypertension Family History Family History Mother Patient's mother is in good health Father Hypertension Social History Social History Smoking status: Current every day smoker Tobacco type: e-cigarettes/vaping Smoking end date: 04/17/11 Alcohol intake: current Gender identity (if verbalized by the patient): Male Comments At time of signature, agree with nursing past medical, surgical, social and family history. There is no relevant family history pertinent to the presenting complaint. Exam Narrative: GENERAL: This is a well-nourished, well-developed patient, in no apparent distress. HEAD: normocephalic, atraumatic. EYES: PERRL. Sclera clear/white. Vision is grossly intact. EARS: External ears normal NOSE: External nose normal NECK: Neck supple, non-tender without lymphadenopathy, masses or thyromegaly. CARDIOVASCULAR: Regular rate and rhythm without murmurs, gallops, or rubs. RESPIRATORY: Clear to auscultation. Breath sounds equal bilaterally. No wheezes, rales, or rhonchi. SKIN: warm, Dry, intact with no suspicious lesions or rash, good texture and turgor. erythema, swelling to L cheek approx. 1cm diameter. firm. no fluctuance or drainage. NEURO: awake, alert, and oriented to person, place and time. There were no obvious focal neurologic abnormalities. EXTREMITIES: No joint tenderness, effusion, or edema noted. Course Course Level of Care: Express Care Visit Vital Signs Vital signs: Reviewed MDM - Wound/Laceration MDM Narrative Medical decision making narrative: will treat cellulitis to left face with antibiotic. Please be advised this is a medical document. It is intended for olfr-im-niha communication. It is written in medical language and may contain unfamiliar abbreviations or verbiage. Medical documents are intended to carry relevant information, facts as evident, and the clinical opinion of the practitioner at the time of the encounter. This report may have been done utilizing a voice recognition system. Attempts have been made to correct errors. However, there may be uncorrected grammatical, spelling, and recognition errors present. The file time of this note does not necessarily represent the time of service. Discharge Plan Discharge Clinical Impression: Cellulitis of face Patient Disposition: Home, Self-Care Condition: Stable Instructions: Antibiotic Form, Cellulitis (ED) Additional Instructions: Take antibiotic as prescribed until gone. Clean affected area with soap and water. Apply antibiotic ointment twice a day. Take ibuprofen every 6 to 8 hours as needed for pain. Patient Language: Armenian Prescriptions: New cephalexin 500 mg capsule 500 mg PO Q8H 7 Days Qty: 21 0RF mupirocin [Centany] 2 % ointment 1 applic topical BID 7 Days Qty: 15 0RF Follow-up/Referrals: UNKNOWN,DOCTOR [Primary Care Provider] - Time of Disposition: 19:16
== END 2024-07-14 19:21 | disposition home or self-care (01) ==
PROVIDERS: Emergency Provider Nurse Practitioner Family
DX: L03.211 Cellulitis of face (principal); F17.290 Nicotine dependence, other tobacco product, uncomplicated; I10 Essential (primary) hypertension
CPT/HCPCS: 99213; G0463